=== PATIENT | female | born 1940 | race Caucasian/White ===

== ENCOUNTER 2017-10-16 05:50 | Day surgery (SDC) | payer OTHER ==
[~2017-10-16] VITALS: Ht 170.2 cm; Wt 120.7 kg
[~2017-10-16 05:50] MED LIST: ASPI-1063 PO; DOCU-144 PO; FURO-149 PO; GLUC-195 PO; LEVO150T8 PO; LIP20 PO; METO50TA7 PO; TRAM50TA92 PO
[2017-10-16] MEDS ORDERED: CEFAZOLIN 1 GM IVPB PREMIX 50 ML IV ONE (06:17)
[2017-10-16] MEDS ORDERED: CEFAZOLIN SOD 1 GM/ ISO 50 ML PREMIX IV ONE (07:00)
[2017-10-16] MEDS ORDERED: LevALBUTEROL HCL 1.25 MG/0.5 ML *CONC.* VIAL.NEB (XOPENEX CONC.) INH ONE (07:15)
[2017-10-16] MEDS ORDERED: POLYMYXIN 500,000/BACIT.10,000 UNITS in NS IRR 1 L IR ONE (08:00)
[2017-10-16] MEDS ORDERED: LR 1,000 ML IV SCH (08:32)
[2017-10-16] MEDS ORDERED: METOCLOPRAMIDE HCL 10 MG/2 ML VIAL IVP PRN (08:45)
[2017-10-16] MEDS ORDERED: MORPHINE 4 MG/ML INJ. SYRINGE IVP PRN ×3 (08:45)
[2017-10-16] MEDS ORDERED: D5/0.45 NS 1,000 ML IV SCH (08:49)
[2017-10-16] MEDS ORDERED: HYDROmorphone 1 MG INJ. 1 MG/ML AMPUL IVP PRN (09:00)
[2017-10-16] MEDS ORDERED: HYDROcodone/ACETAMIN 5-325 MG TAB (NORCO/ VICODIN) PO PRN ×2 (09:00)
[2017-10-16] MEDS ORDERED: ONDANSETRON HCL 4 MG/2 ML VIAL IVP ONE (09:10)
[2017-10-16] MEDS ORDERED: LR 1,000 ML IV.SOLN IV ONE (09:10)
[2017-10-16] MEDS ORDERED: ROCURONIUM BROMIDE 10 MG/ML (ZEMURON) IV ONE (09:10)
[2017-10-16] MEDS ORDERED: NEOSTIGMINE METHYLSULFATE 1 MG/ML, 10 ML VIAL IVP ONE (09:10)
[2017-10-16] MEDS ORDERED: GLYCOPYRROLATE 0.2 MG/ML VIAL IJ ONE (09:10)
[2017-10-16] MEDS ORDERED: PROPOFOL 200MG/ 20ML VIAL (DIPRIVAN) IV ONE (09:10)
[2017-10-16] MEDS ORDERED: HEPARIN SODIUM, PORCINE 10,000 UNITS/ 10 ML VIAL MC ONE (09:10)
[2017-10-16] MEDS ORDERED: NS IRRIG SOLN 1000 ML IR ONE (09:10)
[2017-10-16] MEDS ORDERED: MIDAZOLAM HCL 5 MG/ML VIAL (VERSED) IV ONE (09:10)
[2017-10-16] MEDS ORDERED: NS 1000 ML BAG IV ONE (09:10)
[2017-10-16] MEDS ORDERED: SEVOFLURANE 15 MIN GAS INH ONE (09:10)
[2017-10-16] MEDS ORDERED: fentaNYL CITRATE 250 MCG/5 ML AMP IV ONE (09:10)
[2017-10-16] MEDS ORDERED: DEXAMETHASONE SOD PHOSPHATE 4 MG/ML VIAL IVP ONE (09:10)
[2017-10-16 10:14] VITALS: BP_SYST 127
== END 2017-10-16 11:10 | disposition home or self-care (01) ==
LOC: SMU 05:50 → SDS 05:50
PROVIDERS: ATTEND Colon & Rectal Surgery
DX: C34.90 Malignant neoplasm of unspecified part of unspecified bronchus or lung (principal); J44.9 Chronic obstructive pulmonary disease, unspecified; E66.01 Morbid (severe) obesity due to excess calories; G47.33 Obstructive sleep apnea (adult) (pediatric); Z87.891 Personal history of nicotine dependence; G62.9 Polyneuropathy, unspecified; I12.9 Hypertensive chronic kidney disease with stage 1 through stage 4 chronic kidney disease, or unspecified chronic kidney disease; N18.9 Chronic kidney disease, unspecified; D64.9 Anemia, unspecified
CPT/HCPCS: 36561; 71045; 76000; 94640; C1788; J0690; J1100; J1644; J2250; J2405; J2704; J2710; J3010; J3490; J7030; J7120